=== PATIENT | female | born 1940 ===

== ENCOUNTER 2016-11-19 20:28 | Inpatient (IN) | payer OTHER, MEDICARE ==
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
[2016-11-20 00:21] LABS: BASO % 0.4 % (0.0-2.0); EOS # 0.1 K/uL (0.0-0.7); EOS % 0.8 % (0.0-4.0); HEMOGLOBIN 15.1 g/dL (12.0-16.0); LYMPH # 1.6 K/uL (1.0-4.3); LYMPH % 14.8 % (20.0-40.0); MEAN CELL VOLUME 89.3 fl (81.0-99.0); MEAN CORPUSCULAR HEMOGLOBIN 29.7 pg (27.0-31.0); MEAN CORPUSCULAR HGB CONC 33.2 g/dL (33.0-37.0); MONO # 0.8 K/uL (0.0-0.8); MONO % 6.9 % (0.0-10.0); NEUT # 8.4 K/uL (1.8-7.0); NEUT % 77.1 % (50.0-75.0); RBC 5.09 Mil/uL (3.80-5.20); WHITE BLOOD COUNT 10.9 K/uL (4.8-10.8)
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
[2016-11-20 00:31] LABS: ALB/GLOB RATIO 1.4 (1.0-2.1); ALBUMIN 4.3 g/dL (3.5-5.0); ALT/SGPT 44 U/L (9-52); AST/SGOT 32 U/L (14-36); BLOOD UREA NITROGEN 25 mg/dl (7-17); CALCIUM 9.5 mg/dL (8.4-10.2); GFR AFRICAN-AMERICAN > 60; GFR NON-AFRICAN AMERICAN > 60
[2016-11-20 00:45] LABS: PARTIAL THROMBOPLASTIN TIME 34.5 Seconds (25.6-37.1); PROTHROMBIN TIME 11.1 Seconds (9.8-13.1)
--- NOTE | 2016-11-20 07:59 | CARD ---
APPROVED REPORT EKG Measurement Heart [id number] <Conclusion> Sinus rhythm with 1st degree AV block Poor R wave progress V1 to V3 Abnormal ECG
[2016-11-20] MEDS: Oxycodone/Acetaminophen 5/325 mg Tab PO PRN (09:45)
--- NOTE | 2016-11-20 10:17 | RAD ---
HISTORY: admit COMPARISON: No prior. FINDINGS: LUNGS: The lungs are clear. PLEURA: No significant pleural effusion identified, no pneumothorax apparent. CARDIOVASCULAR: Normal. OSSEOUS STRUCTURES: No significant abnormalities. VISUALIZED UPPER ABDOMEN: Normal. OTHER FINDINGS: None. IMPRESSION: No active pulmonary disease.
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
[2016-11-20] MEDS: Morphine 4 MG/ML VIAL IVP PRN ×2 (16:40→23:53)
--- NOTE | 2016-11-20 17:18 | MRI ---
PROCEDURE: MR LUMBAR SPINE WITHOUT CONTRAST HISTORY: compression fracture L1 COMPARISON: Comparison is made to the previous CT dated 11/19/2016 TECHNIQUE: Multiecho multiplanar sequences were performed through the lumbar spine without the use of intravenous contrast. FINDINGS: Normal lumbar lordosis. There is [id number] compression deformity of L1 involving the mid and upper portion. There is hyperintense T1 and T2 signal bony lesions seen at the central portion of L1 likely represent hemangioma. Conus medullaris unremarkable at the level of T11-T12 Paraspinal soft tissues are unremarkable. T12-L1: There is bony retropulsion seen at T12-L1 which resulting in mild spinal stenosis. L1-2: No disc herniation, spinal canal stenosis or neural foraminal narrowing. L2-3: No disc herniation, spinal canal stenosis or neural foraminal narrowing. L3-4: Small broad-based disc bulging seen associated with ligament and facet joint hypertrophy which resulting in mild spinal stenosis. No evidence of significant neural foraminal narrowing. L4-5: Mild narrowing of the intervertebral disc is space seen. Moderate degenerative endplate changes are seen. No disc herniation, spinal canal stenosis or neural foraminal narrowing. L5-S1: No disc herniation, spinal canal stenosis or neural foraminal narrowing. OTHER FINDINGS: None. IMPRESSION: [id number] compression deformity at the superior endplate of L1 without evidence of significant bone marrow edema likely old. Hyperintense T1 and T2 signal bony lesion seen at the central portion of L1 likely represents hemangioma. Moderate endplate degenerative changes seen more prominent at L4-L5.
[2016-11-21] MEDS: Morphine 4 MG/ML VIAL IVP PRN ×2 (09:21→15:29)
[2016-11-21] MEDS: Oxycodone/Acetaminophen 5/325 mg Tab PO PRN (11:55)
--- NOTE | 2016-11-21 14:31 | CP.PCM.PN ---
Subjective - Date & Time of Evaluation Date of Evaluation: 11/21/16 Time of Evaluation: 14:27 - Subjective Subjective: SPINE Pt sitting up in bed. Appears a little more comfortable than yesterday. Vomited earlier (had Morphine while NPO) but no nausea now. VSS. Moving extremities. Neuro intact. Plan: MRI showed no acute fx. + hemangioma. PT ordered and will mobilize as tolerated. Can d/c when cleared by therapy. Will recheck in office, or will revisit in hospital if needed. Thanks. Objective - Vital Signs/Intake and Output Vital Signs (last 24 hours): Temp Pulse Resp BP Pulse Ox 99.3 F 82 20 167/78 H 98 11/21/16 08:48 11/21/16 09:23 11/21/16 08:48 11/21/16 09:23 11/21/16 08:48 - Medications Medications: Current Medications Acetaminophen (Tylenol 325mg Tab) 650 mg PO Q6 PRN PRN Reason: Pain, Mild (1-3) Metoprolol Tartrate (Lopressor) 50 mg PO BID VINNY Last Admin: 11/21/16 09:23 Dose: 50 mg Morphine Sulfate (Morphine) 2 mg IVP Q4 PRN PRN Reason: Pain, severe (8-10) Last Admin: 11/21/16 09:21 Dose: 2 mg Oxycodone/Acetaminophen (Percocet 5/325 Mg Tab) 1 tab PO Q4 PRN PRN Reason: Pain, moderate (4-7) Stop: 11/23/16 00:14 Last Admin: 11/21/16 11:55 Dose: 1 tab - Labs Labs: 11/20/16 00:10 11/20/16 00:10 PT 11.1 Seconds (9.8-13.1) 11/20/16 00:10 INR 1.0 (0.9-1.2) 11/20/16 00:10 APTT 34.5 Seconds (25.6-37.1) 11/20/16 00:10
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
[2016-11-22] MEDS: Morphine 4 MG/ML VIAL IVP PRN (09:07)
[2016-11-22 09:12] VITALS: BP 161/80; PULSE 73
[2016-11-22 09:44] VITALS: RESP 18; TEMP 98.2; O2SAT 95
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
[2016-11-22] MEDS ORDERED: Lidocaine 5% Patch TD STA (11:24)
[2016-11-22] MEDS: Oxycodone/Acetaminophen 5/325 mg Tab PO PRN (11:28)
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
== END 2016-11-22 14:39 | disposition home or self-care (01) | DRG 552 ==
LOC: H.ER 20:28 → H.ERHOLD 11-20 00:07 → H.MEDSURG1 11-20 01:30
PROVIDERS: ADMIT Internal Medicine; ATTEND Internal Medicine
DX: S33.5XXA Sprain of ligaments of lumbar spine, initial encounter (principal); I10 Essential (primary) hypertension; D18.09 Hemangioma of other sites; V43.62XA Car passenger injured in collision with other type car in traffic accident, initial encounter; Y93.9 Activity, unspecified; Y92.410 Unspecified street and highway as the place of occurrence of the external cause

== ENCOUNTER 2017-05-30 05:52 | Day surgery (SDC) | payer OTHER, MEDICARE ==
[2017-05-18 10:45] VITALS: BMI 28.7
[2017-05-30] MEDS ORDERED: Lactated Ringer's 1,000 ML IV ONE ×2 (07:00→11:13)
[2017-05-30] MEDS ORDERED: Propofol 10 mg/ml Inj (20 ML) ONE (07:03)
[2017-05-30] MEDS ORDERED: Midazolam 2 MG/2 ML VIAL ONE (07:07)
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
[2017-05-30] MEDS ORDERED: Succinylcholine 200 mg/10 ml Inj IV ONE (07:08)
[2017-05-30] MEDS ORDERED: ePHEDrine 50 mg/ml Inj ONE (07:08)
[2017-05-30] MEDS ORDERED: Rocuronium 10 mg/ml (5 ml) ONE (07:08)
[2017-05-30] MEDS ORDERED: Etomidate 20 mg/10ml Inj IV ONE (07:09)
[2017-05-30] MEDS ORDERED: Lidocaine 4% (Laryng-O-Jet) Kit MM ONE (07:09)
[2017-05-30] MEDS ORDERED: Ropivacaine 0.5% 30ML IV ONE (07:25)
[2017-05-30] MEDS ORDERED: Bacitracin Ointment 30 GM TUBE ONE (07:50)
[2017-05-30] MEDS ORDERED: MethylPREDNISolone Depo 40 mg/ml Inj ONE (07:50)
[2017-05-30] MEDS ORDERED: Lidocaine 2% w Epi 1:100,000 Inj IJ ONE (07:50)
[2017-05-30] MEDS ORDERED: Bupivacaine 0.5% Inj(30mL) ONE (07:51)
[2017-05-30] MEDS ORDERED: ceFAZolin IV 1 gm in Dextrose 1 GM/50 ML BAG IVPB ONE (07:56)
[2017-05-30] MEDS ORDERED: Dexamethasone 4 mg/1 ml ONE (09:05)
[2017-05-30] MEDS ORDERED: Lidocaine 1% Inj (20ml) ONE (09:31)
[2017-05-30] MEDS ORDERED: Desflurane Inhalation Anesthetic Liq (240 ml) ONE (11:01)
[2017-05-30] MEDS ORDERED: Metoprolol 1 mg/ml Inj IVP ONE (11:51)
[2017-05-30] MEDS ORDERED: HYDROmorphone 0.5 mg/0.5 ml ISec IVP PRN (12:29)
[2017-05-30] MEDS ORDERED: Lactated Ringer's 1,000 ML IV SCH (12:30)
--- NOTE | 2017-05-30 12:31 | PCM.ANESB1 ---
Interscalene Block - Brachial Plexus Date of Procedure: 05/30/17 Anesthesiologist: Debra Pre-Procedure Diagnosis: Left Rotator cuff tear Post-Procedure Diagnosis: Left rotator cuff tear Procedure Performed: Interscalene Block of Brachial Plexus Left - Procedure Interscalene Block of Brachial Plexus: This procedure was explained to the patient that it is for post-operative pain management. Consent was obtained after a thorough discussion with the patient regarding the benefits and possible complications of local anesthetic block of the Brachial Plexus at the Interscalene area. The patient was brought to the Operating Room and standard monitors were applied. Time out was held with the circulating nurse to confirm the correct surgery and appropriate block. After applying Oxygen by nasal cannula and administering IV Sedation, the patient's head was gently rotated away from the left operative shoulder and the anterior scalene groove was carefully palpated. The ultrasound transducer was then applied to the skin in the transverse plane and the brachial plexus was visualized lateral to the carotid artery and in between the anterior and middle scalene muscles. After identification,the anterior lateral portion of the neck was prepped with Betadine solution three times and Lidocaine 1% was injected subcutaneously for topical analgesia. At this point, a # 22 gauge Stimuplex 2 inches insulated needle was inserted into the interscalene groove and directed in a caudal and midline direction. The needle was inserted lateral to the ultrasound transducer in-plane towards the brachial plexus in a [id number] direction. Needle advancement was performed carefully under direct ultrasound visualization. Nerve stimulator was used and twitched of the affected extremity including the hand brachialis muscles, biceps and the deltoid was obtained at a current of 0.3 MA. After repeated negative aspiration, 20 cc of Ropivicaine 0.5% was injected. Under ultrasound guidance the local anesthetics were observed surrounding the roots of the brachial plexus. The needle was removed intact and sterile dressing was applied. The patient had stable vital signs, was conscious and in no apparent distress. The patient tolerated the interscalene block of the bracheal plexus well with stable vital signs and was prepared for subsequent surgery.
[2017-05-30] MEDS ORDERED: Oxycodone/Acetaminophen 5/325 mg Tab PO PRN (13:58)
--- NOTE | 2017-05-30 14:04 | PCM.SURG1 ---
Surgeon's Initial Post Op Note - Surgeon's Notes Surgeon: Nancy Tar Distributor Operator: ORESTES Pacheco Type of Anesthesia: General Endo, Block Regional Anesthesia Administered By: DR Viv Richardson Pre-Operative Diagnosis: post traumatic derangement L shoulder Operative Findings: gr 3 tear L Rotator cuff (posttraumatic). tear glenoid labrum. avulsion biceps tendon. A/c joint injury/arthropathy. subacromail busitis Post-Operative Diagnosis: as above Operation Performed: arthroscopic rotator cuff repair. arthroscopic labral repair. arthroscopic biceps tenodesis. arthroscopic partial distal claviculectomy. arthroscopic bursectomy/lysis of adhesions. arthroscopic acromioplasty. Specimen/Specimens Removed: bone/cartilage/synovium Estimated Blood Loss: EBL {In ML}: 15 Blood Products Given: N/A Drains Used: No Drains Post-Op Condition: Good Date of Surgery/Procedure: 05/30/17 Time of Surgery/Procedure: 09:30 (time in room 8:20/anersthesia indcution time 8 :20)
[2017-05-30 14:52] VITALS: RESP 18
[2017-05-30 16:53] VITALS: BP 144/77; PULSE 89; TEMP 98.3; O2SAT 96
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
== END 2017-05-30 17:30 | disposition home or self-care (01) ==
LOC: H.OPSURG 05:52
PROVIDERS: ATTEND Orthopaedic Surgery
DX: M75.41 Impingement syndrome of right shoulder (principal); M75.112 Incomplete rotator cuff tear or rupture of left shoulder, not specified as traumatic; S43.492A Other sprain of left shoulder joint, initial encounter; M75.52 Bursitis of left shoulder; I10 Essential (primary) hypertension
CPT/HCPCS: 29823; 29824; 29827; 88304; J0171; J0330; J0690; J1100; J2001; J2250; J2405; J2704; J3010; J7120